=== PATIENT | female | born 1990 | race Caucasian/White ===

== ENCOUNTER 2018-02-19 07:00 | Inpatient (IN) | payer BC, SELFPAY ==
[2018-02-19 07:40] VITALS: BMI 33.1
[2018-02-19] MEDS: Lactated Ringers 1,000 ML 50 ML IV ×2 (07:50→15:21)
[2018-02-19 07:58] LABS: Hematocrit 36.1 % (37-47); Hemoglobin 11.9 g/dl (12.0-15.0); Mean Corpuscular Hgb 29.2 pg (27.0-32.0); Mean Corpuscular Volume 88.7 fL (81-99); Mean Platelet Vol. 11.8 fl (6.2-12.0); Platelet Count 226 K/mm3 (150-450); RBC Distribution Width CV 13.5 % (11.6-14.6); RBC Distribution Width SD 43.9 fl (35.1-43.9); Red Blood Count 4.07 M/mm3 (4.2-5.4); Scan Indicated on CBC? Y/N NO; White Blood Count 18.6 K/mm3 (4.4-11.0)
[2018-02-19] MEDS: Oxytocin 30 units/NS 500 ml 30 UNITS/500 ML IV.SOLN IV (08:17)
--- NOTE | 2018-02-19 08:53 | PCM.HP.OB ---
- Problem List (1) Post-dates Status: Acute (2) History of depression Status: Acute History Date of Admission: 02/19/18 Final LIZA: 02/11/18 Final LIZA Source: LMP Gestational age: 41 Weeks and 1 Days History of this : 27 year old at 41w1d by LMP, confirmed by first trimester U/S. Presented to L&D for postdates IOL today at 0700. uncomplicated. History of first trimester SAB. Allergies sesame seed Allergy (Verified 02/19/18 07:43) Food Allergy shellfish derived Allergy (Verified 02/19/18 07:43) Food Allergy soy Allergy (Verified 02/19/18 07:43) Food Allergy chickpea Allergy (Uncoded 02/19/18 07:43) Itching nuts Allergy (Uncoded 02/19/18 07:43) Anaphylaxis pineapple Allergy (Uncoded 02/19/18 07:43) Food Allergy soy Allergy (Uncoded 02/19/18 07:43) Food Allergy Smoking Status: Never smoker Alcohol: None Number of Fetus(es): 1 Review of Systems Constitutional: Denies: Chills, Fever, Weight Change Cardiovascular: Denies: Chest Pain, Palpitations Respiratory: Denies: Cough, Shortness of breath at rest, Sputum production Gastrointestinal: Denies: Abdominal Pain, Nausea, Vomiting Genitourinary: Denies: Dysuria Psychiatric: Denies: Anxiety, Depression, Homicidal Ideations, Suicidal Ideations Physical Exam Vitals: RPR negative HBsAG negative HIV negative O positive, antibody screen negative GBS positive Rubella immune FHR 150, moderate variability, accels, no decels, Category 1 [place]: None Davis bulb placed without difficulty, patient tolerated well. General: Alert, Oriented x3, No apparent distress Cardiovascular: Regular rate, Regular Rhythm, No murmurs Lungs: Clear to auscultation, No rhonchi, No wheeze Abdomen: Bowel Sounds Present, Gravid Extremities:: No edema Estimated gestational size: Appropriate for gestational size Presentation: Cephalic Cervix Dilation (cm): 3 Station: -2 Effacement (%): 60 Assessment/Plan Active and Suspected Problems (Acute) Post-dates (Acute) History of depression (Acute) A: 27 year old at 41w1d postdates for Induction of labor Category 1 FHT GBS positive P: 1) Admit for induction of labor. Davis bulb for cervical ripening. 2) IV placement with maintenance fluids 3) Routine labs ordered 4) GBS positive, start GBS prophylaxis 5) Start low dose pitocin. 6) Planning epidural for pain management. 7) as collaborative physician at this time and notified of patient update and in labor. Natasha Turner CNM
--- NOTE | 2018-02-19 11:45 | PCM.PN.OB ---
Patient Problems: Active and Suspected Problems (Acute) Post-dates (Acute) History of depression (Acute) Subjective: Doing well per patient and nursing staff. Family at bedside. Comfortable in bed. Positional changes and peanut ball. Davis fell out about an hour after placement. Objective: FHR 150, moderate variability, accels, Category 1 Cervix 4cm/70%/-1 IBOW TOCO: every 2-3 minutes, mild to palpation Pitocin at 6 mu's - Physical Exam Weight: 224 lb 6.889 oz Body Mass Index (BMI) 33.1 Laboratory Tests Past 24 Hrs 02/19/18 02/19/18 07:50 07:50 WBC 18.6 H RBC 4.07 L Hgb 11.9 L Hct 36.1 L MCV 88.7 MCH 29.2 MCHC 33.0 RDW 13.5 RDW Differential 43.9 Plt Count 226 MPV 11.8 Blood Type O POSITIVE Antibody Screen NEGATIVE Medical Necessity - Tobacco Use Smoking Status: Never smoker Assessment/Plan Active and Suspected Problems (Acute) Post-dates (Acute) History of depression (Acute) A: IOL, Active labor, progressing Category 1 FHT GBS positive P: 1) continue with pitocin IOL 2) Epidural for pain management when requested 3) GBS prophylaxis 4) Anticipate .
[2018-02-19] MEDS: Ondansetron 4 MG/2 ML Vial IV (15:40)
[2018-02-19] MEDS: Oxytocin 30 units/NS 500 ml 30 UNITS/500 ML IV.SOLN 334 UNITS IV (16:40)
[2018-02-19] MEDS: Oxytocin 30 units/NS 500 ml 30 UNITS/500 ML IV.SOLN 167 UNITS IV (17:10)
--- NOTE | 2018-02-19 17:20 | PCM.OB.VAG ---
- Problem List (1) Post-dates Status: Acute (2) History of depression Status: Acute (3) Vaginal delivery Status: Acute (4) Second degree perineal laceration, delivered, current hospitalization Status: Acute Vaginal Delivery Maternal Presentation: Medically Indicated Induction Method of Induction: Pitocin, Davis Bulb Amniotic Membrane Rupture Type: Artificial Amniotic Fluid Description: Clear Final LIZA: 02/11/18 Gestational age: 41 Weeks and 1 Days Date of Procedure: 02/19/18 Pre-Operative Diagnosis: Induction of labor, postdates Post-Operative Diagnosis: Vaginal delivery Surgery/ Procedure Performed: Spontaneous Vaginal Delivery Type of Anesthesia: Epidural, Local with 1% lidocaine Description of Procedure: Progressed to complete with urge to push. AROM for clear fluid. Pushed well with contractions, late decelerations in between pushing. heart rate decelerations down to 70's, patient with good pushing effort and progress. of viable male infant over 2nd degree perineal laceration. Apgars 8,9. delivered and placed on maternal abdomen, spontaneous cry, mouth and nares suctioned for secretions, terminal meconium. CAN x1, delivered through. Delayed cord clamping. Cord doubly clamped and cut. Placenta delivered intact via mihsel, 3 vessel cord. Perineum inspected and revealed 2nd degree perineal laceration. Repaired under epidural analgesia and 1% lidocaine with 3.0 vicryl, well approximated. Fundus firm, hemostasis achieved, EBL 300ml. Planning to breastfeed. Mother and baby stable, family bonding well. notified of delivery. Presentation: Vertex, MICH Placental Delivery Description: Spontaneous Placenta Disposition: [facility] Cord Vessel Description: 3 Vessels Cord Entanglement: Around neck x 1, loose A gender: Male Episiotomy Description: None Laceration: Perineal Extension/lac, 2nd degree Medications given after delivery: IV Pitocin
--- NOTE | 2018-02-19 17:28 | OP.PCM_ITS ---
- Problem List (1) Post-dates Status: Acute (2) History of depression Status: Acute (3) Vaginal delivery Status: Acute (4) Second degree perineal laceration, delivered, current hospitalization Status: Acute Vaginal Delivery Maternal Presentation: Medically Indicated Induction Method of Induction: Pitocin, Davis Bulb Amniotic Membrane Rupture Type: Artificial Amniotic Fluid Description: Clear Final LZIA: 02/11/18 Gestational age: 41 Weeks and 1 Days Date of Procedure: 02/19/18 Pre-Operative Diagnosis: Induction of labor, postdates Post-Operative Diagnosis: Vaginal delivery Surgery/ Procedure Performed: Spontaneous Vaginal Delivery Type of Anesthesia: Epidural, Local with 1% lidocaine Description of Procedure: Progressed to complete with urge to push. AROM for clear fluid. Pushed well with contractions, late decelerations in between pushing. heart rate decelerations down to 70's, patient with good pushing effort and progress. of viable male infant over 2nd degree perineal laceration. Apgars 8,9. delivered and placed on maternal abdomen, spontaneous cry, mouth and nares suctioned for secretions, terminal meconium. CAN x1, delivered through. Delayed cord clamping. Cord doubly clamped and cut. Placenta delivered intact via mishel , 3 vessel cord. Perineum inspected and revealed 2nd degree perineal laceration. Repaired under epidural analgesia and 1% lidocaine with 3.0 vicryl, well approximated. Fundus firm, hemostasis achieved, EBL 300ml. Planning to breastfeed. Mother and baby stable, family bonding well. notified of delivery. Presentation: Vertex, MICH Placental Delivery Description: Spontaneous Placenta Disposition: [facility] Cord Vessel Description: 3 Vessels Cord Entanglement: Around neck x 1, loose A gender: Male Episiotomy Description: None Laceration: Perineal Extension/lac, 2nd degree Medications given after delivery: IV Pitocin
--- NOTE | 2018-02-19 17:29 | DCINST_ITS ---
Discharge Diet: No Restrictions Discharge Activity: Return to Normal Activity, May not drive while taking narcotic pain medications., May Shower May resume sexual activity in: 4-6 weeks Weight Bearing Status: Weight bearing as tolerated Call your doctor if your incision/area has: Continuous Slow Oozing, Sudden Increased Bleeding, Increased Pain/ Swelling, Increased Redness, Foul Smelling Discharge Call your doctor if you observe: Fever of 101 or Higher, Coldness, Increased Pain, Numbness or Tingling, Change in Color, Inability to urinate, Inability to have a bowel movement, Using more than one pad per hour, Shortness of breath, Dizziness, Fainting spells, Swelling in the ankles, Chest pain, Prolonged hiccoughing, Increased palpitations (irregular heartbeat) Additional Instructions: If you experience any of the following, contact your healthcare provider. * Bleeding that soaks a pad every hour for 2 hours * Fever 100.4 or higher * Unrelieved incision or abdominal pain * Swelling, redness, discharge or bleeding from your incision or episiotomy site * Your incision begins to separate * Problems urinating (including inability to urinate or burning while urinating) . * Visual changes * Severe headache * Flu-like symptoms * Pain or redness in one of both of your breasts * Pain, warmth, tenderness or swelling in your legs, especially the calf area * Frequent nausea and vomiting * Symptoms of depression or anxiety If you experience any of the following, call 911 or go to the nearest Emergency Room. * Chest pain * Problems breathing * Seizure activity * Partial or complete paralysis of a body part, slurred speech, weakness or drooping of the face, or a sudden inability to walk or hold your balance Allergies/Adverse Reactions: Allergies sesame seed Allergy (Verified 02/19/18 07:43) Food Allergy shellfish derived Allergy (Verified 02/19/18 07:43) Food Allergy soy Allergy (Verified 02/19/18 07:43) Food Allergy chickpea Allergy (Uncoded 02/19/18 07:43) Itching nuts Allergy (Uncoded 02/19/18 07:43) Anaphylaxis pineapple Allergy (Uncoded 02/19/18 07:43) Food Allergy soy Allergy (Uncoded 02/19/18 07:43) Food Allergy Medications to take at Discharge Pnv No.122/Iron/Folic Acid [ Multi Tablet] 1 each PO DAILY 02/19/18 Please Follow Up With: Natasha Turner CNM When: Call to make an appointment with your doctor in 6 weeks. If you had elevated Blood Pressure or 4th degree laceration you will need to be seen in 2 weeks. Primary Care Physician: Care Physician,No Primary [Primary Care Provider] -
[2018-02-19] MEDS: 0.9% Saline Lock 10 ML Syringe IV (18:10)
[2018-02-19 19:29] VITALS: BP 123/67; PULSE 87; RESP 16; TEMP 37.3; O2SAT 98
[2018-02-19] MEDS: Naproxen 250 MG Tablet PO (23:12)
[2018-02-19 23:17] VITALS: BP 121/64; PULSE 77; RESP 16; TEMP 36.8
[2018-02-20 03:18] VITALS: BP 119/70; PULSE 78; RESP 16; TEMP 36.7
[2018-02-20] MEDS: Naproxen 250 MG Tablet PO ×2 (07:36→19:20)
[2018-02-20 07:53] VITALS: BP 124/78; PULSE 95; RESP 16; TEMP 36.6
[2018-02-20 11:45] VITALS: BP 123/70; PULSE 81; RESP 16; TEMP 36.9
--- NOTE | 2018-02-20 12:23 | PCM.PN.OB ---
Patient Problems: Active and Suspected Problems (Acute) Post-dates (Acute) History of depression (Acute) Vaginal delivery (Acute) Second degree perineal laceration during delivery (Acute) Second degree perineal laceration, delivered, current hospitalization (Acute) Subjective: Doing well per patient and nursing staff. Ambulating and taking PO without difficulty. Doing well with and no complaints. Voiding and passing flatus. Pain controlled with Naproxen. Would like discharge home today. - Physical Exam General: Alert, Oriented x3, Cooperative Lungs: Clear to auscultation, Normal air movement, No rhonchi, No wheeze Cardiovascular: Regular rate, Regular Rhythm, No murmurs Abdomen: Bowel Sounds Present, Soft, - - Fundus firm 2 below U Extremities: No edema Psych/Mental Status: Normal Affect, Appropriate Vital Signs Temp Pulse Resp BP Pulse Ox 98.5 F 81 16 123/70 H 98 02/20/18 11:45 02/20/18 11:45 02/20/18 11:45 02/20/18 11:45 02/19/18 19:29 Oxygen Delivery Method Room Air Weight: 224 lb 6.889 oz Body Mass Index (BMI) 33.1 Intake and Output for Last 24 Hours 02/18/18 02/19/18 02/20/18 23:59 23:59 23:59 Output Total 800 / 800 600 / 600 Balance -800 / -800 -600 / -600 Medical Necessity - Tobacco Use Smoking Status: Never smoker Assessment/Plan Active and Suspected Problems (Acute) Post-dates (Acute) History of depression (Acute) Vaginal delivery (Acute) Second degree perineal laceration during delivery (Acute) Second degree perineal laceration, delivered, current hospitalization (Acute) A: PPD#1 of viable male infant Second degree perineal laceration P: 1) Routine and instructions. 2) Planning D/C home today, discharge instructions given. 3) Wants to use Naproxen OTC, declines script. 4) Follow up in 6 weeks for visit.
[2018-02-20] MEDS: Acetaminophen 500 MG Tablet 1000 MG PO (14:52)
[2018-02-20 15:55] VITALS: BP 129/76; PULSE 96; RESP 16; TEMP 36.5
[2018-02-20 19:23] VITALS: BP 121/83; PULSE 80; RESP 16; TEMP 36.5
== END 2018-02-20 21:25 | disposition home or self-care (01) | DRG 774 ==
PROVIDERS: Admitting Provider Obstetrics & Gynecology; Visit Provider Obstetrics & Gynecology
DX: O48.0 Post-term pregnancy (principal); O98.82 Other maternal infectious and parasitic diseases complicating childbirth; Z3A.41 41 weeks gestation of pregnancy; B95.1 Streptococcus, group B, as the cause of diseases classified elsewhere; O76 Abnormality in fetal heart rate and rhythm complicating labor and delivery; O77.0 Labor and delivery complicated by meconium in amniotic fluid; O69.81X0 Labor and delivery complicated by cord around neck, without compression, not applicable or unspecified; Z37.0 Single live birth; O70.9 Perineal laceration during delivery, unspecified
CPT/HCPCS: 59025; 59050; 85027; 86850; 86900; 99218; J7050; J7120; A4216; G0378; J2405

== ENCOUNTER 2019-03-07 15:45 | Outpatient (CLI) | payer OTHER, SELFPAY ==
[2019-03-07 16:15] VITALS: BMI 30.8
--- NOTE | 2019-03-08 08:07 | OB.TRI.NOTE ---
History of Present Illness Date of Service: 03/07/19 Was patient seen by the physician?: Yes Reason For Visit: R/O LABOR Date of Service: 03/07/19 Final LIZA: 03/20/19 Final LIZA Source: LMP Gestational age: 38 Weeks and 2 Days Allergies sesame seed Allergy (Verified 03/07/19 17:00) Food Allergy shellfish derived Allergy (Verified 03/07/19 17:00) Food Allergy soy Allergy (Verified 03/07/19 17:00) Food Allergy nuts Allergy (Severe, Uncoded 03/07/19 17:00) Anaphylaxis chickpea Allergy (Mild, Uncoded 03/07/19 17:00) Itching pineapple Allergy (Uncoded 02/19/18 07:43) Food Allergy soy Allergy (Uncoded 02/19/18 07:43) Food Allergy NST - FHR Rate Baby A Baseline: 120 Variability:: Moderate Accelerations:: 15 x 15 Decelerations:: None NST Reactive:: Yes FHR Category:: Category I Uterine Activity:: ctxs irreg Impression/Plan 38 1/7 weeks multigravida\ false labor NST reactive, cervix unchanged, d/c home
== END 2019-03-07 16:30 | disposition home or self-care (01) ==
LOC: WPOUT 15:57 → WP 15:58
PROVIDERS: Referring Provider Obstetrics & Gynecology; Visit Provider Obstetrics & Gynecology
DX: O47.1 False labor at or after 37 completed weeks of gestation (principal); Z3A.38 38 weeks gestation of pregnancy
CPT/HCPCS: 59025; 59050; 99218; G0378

== ENCOUNTER 2019-03-19 21:38 | Outpatient (CLI) | payer OTHER, SELFPAY ==
[2019-03-19 22:16] VITALS: BMI 31.1
[2019-03-19 22:30] LABS: ROM Internal Control Test YES-OK TO RESULT pt. (Internal QC); ROM Patient Test Negative (Negative)
--- NOTE | 2019-03-20 16:06 | OB.TRI.NOTE ---
- Problem List (1) 39 weeks gestation of Status: Acute (2) Vaginal discharge Status: Acute History of Present Illness Date of Service: 03/19/19 Was patient seen by the physician?: No Reason For Visit: R/O LABOR Final LIZA Source: LMP History of Present Illness: Pt presents with possible leaking of fluid. No large gushes of fluid. +Irregular ctx's. No VB. +FM Allergies sesame seed Allergy (Verified 03/19/19 22:18) Food Allergy shellfish derived Allergy (Verified 03/19/19 22:18) Food Allergy soy Allergy (Verified 03/19/19 22:18) Food Allergy nuts Allergy (Severe, Uncoded 03/07/19 17:00) Anaphylaxis chickpea Allergy (Mild, Uncoded 03/07/19 17:00) Itching pineapple Allergy (Uncoded 02/19/18 07:43) Food Allergy soy Allergy (Uncoded 02/19/18 07:43) Food Allergy Laboratory Studies: Laboratory Tests 03/19/19 Range/Units 21:51 Vag Amniotic Fld Detect Negative (Negative) NST - FHR Rate Baby A NST Reactive:: Yes FHR Category:: Category I Impression/Plan ROM plus negative Not ruptured D/c home with follow up in the office
== END 2019-03-20 01:20 | disposition home or self-care (01) ==
LOC: WPOUT 21:53 → WP 21:56
PROVIDERS: Referring Provider Obstetrics & Gynecology; Visit Provider Obstetrics & Gynecology
DX: Z34.93 Encounter for supervision of normal pregnancy, unspecified, third trimester (principal)
CPT/HCPCS: 59025; 59050; 84112; 99218; G0378

== ENCOUNTER 2019-03-27 06:59 | Inpatient (IN) | payer OTHER, SELFPAY ==
[2019-03-27] MEDS: Lactated Ringers 1,000 ML 50 ML IV (07:25)
[2019-03-27 07:45] VITALS: BMI 31.0
[2019-03-27 07:48] LABS: Absolute Neutrophil Count 9.9 X10^3/uL (2.0-7.7); Basophil# 0.03 X10^3/uL; Basophil% 0.2 % (0-1); Eosinophil# 0.19 X10^3/uL; Eosinophils% 1.3 % (0-5); Hematocrit 36.8 % (37-47); Hemoglobin 12.3 g/dl (12.0-15.0); Lymphocyte % 22.7 % (19-41); Mean Corp Hgb Conc 33.4 g/gl (32-36); Mean Corpuscular Hgb 29.7 pg (27.0-32.0); Mean Corpuscular Volume 88.9 fL (81-99); Mean Platelet Vol. 11.6 fl (6.2-12.0); Monocyte% 6.9 % (0-10); Neutrophil % 68.3 % (47-70); POSITIVE COUNT NO; POSITIVE DIFFERENTIAL NO; POSITIVE MORPHOLOGY NO; Platelet Count 228 K/mm3 (150-450); RBC Distribution Width CV 13.4 % (11.6-14.6); RBC Distribution Width SD 43.4 fl (35.1-43.9); Red Blood Count 4.14 M/mm3 (4.2-5.4); White Blood Count 14.5 K/mm3 (4.4-11.0)
[2019-03-27] MEDS: Oxytocin 30 units/NS 500 ml 30 UNITS/500 ML IV.SOLN IV (08:05)
--- NOTE | 2019-03-27 08:57 | HP.PCM_ITS ---
- Problem List (1) Post-dates Status: Acute History Date of Admission: 02/19/18 Final LIZA: 03/20/19 Final LIZA Source: LMP Gestational age: 41 Weeks and 0 Days History of this : This is a 28 year-old, G [3], P [1011], at 41 weeks gestational age. Presents for post dates IOL. Allergies sesame seed Allergy (Verified 03/27/19 07:50) Food Allergy shellfish derived Allergy (Verified 03/27/19 07:50) Food Allergy soy Allergy (Verified 03/27/19 07:50) Food Allergy nuts Allergy (Severe, Uncoded 03/07/19 17:00) Anaphylaxis chickpea Allergy (Mild, Uncoded 03/07/19 17:00) Itching pineapple Allergy (Uncoded 02/19/18 07:43) Food Allergy soy Allergy (Uncoded 02/19/18 07:43) Food Allergy Home Medications: Home Medications No122/Iron/Folic Acid [ Multi Tablet] 1 each PO DAILY 02/19/18 Smoking Status: Never smoker Alcohol: None Heart Tracin, moderate variability, accels, Category 1 TOCO: Irregular, mild. Pitocin at 4mu's History Past Pregnancies: Past Pregnancies Delivery Date Name GA/Weeks Outcome Route Weight Infant Gender Labor Length Anesthesia Delivery Location Provider FOB Labs: HIV negative HBsAG negative RPR negative GBS negative 1hr GCT normal Rubella Immune GC/CT negative O positive, antibody screen negative. Expected Infant Delivery Method: Spontaneous Vaginal Review of Systems Constitutional: Denies: Chills, Fever, Weight Change Eyes: Denies: Blurred vision HEENT: Denies: Head Aches, Sinus Congestion, Sinus Drainage Cardiovascular: Denies: Chest Pain, Palpitations Respiratory: Denies: Cough, Shortness of breath at rest, Sputum production Gastrointestinal: Denies: Abdominal Pain, Nausea, Vomiting Genitourinary: Denies: Dysuria Neurological: Denies: Numbness, Tingling, Focal weakness Psychiatric: Denies: Anxiety, Depression, Homicidal Ideations, Suicidal Ideations Physical Exam General: Alert, Oriented x3, No apparent distress HEENT: Atraumatic, Normocephalic Cardiovascular: Regular rate, Regular Rhythm, No murmurs Lungs: Clear to auscultation, Normal air movement, No rhonchi, No wheeze Abdomen: Bowel Sounds Present, Soft, Non Tender, Gravid Extremities:: No edema Neurological: Deep Tendon Reflexes 2+/4 and Symmetrical. Negative for: Clonus [employer]INCIPAL PRODUCT MANAGER: Normal external genitalia Estimated gestational size: Appropriate for gestational size Presentation: Cephalic Cervix Dilation (cm): 4.5 - vertex IBOW Station: -1 Effacement (%): 70 Assessment/Plan All Active Problems (Acute) Post-dates (Acute) History of depression (Acute) Vaginal delivery (Acute) Second degree perineal laceration during delivery (Acute) Second degree perineal laceration, delivered, current hospitalization (Acute) 39 weeks gestation of (Acute) Vaginal discharge (Acute) This is a 28 year-old, G [3], P [1011], at 41 weeks gestational age. A:Post dates Induction of Labor Category 1 FHT P: 1) Admission to L&D. Routine labs 2) Pitocin for IOL per protocol 3) Continuous EFM 4) Positional changes and movement. 5) Planning Nitrous or IV pain medication, epidural if needed. 6) collaborative physician.
[2019-03-27] MEDS: Nalbuphine 10 MG/ML Ampul IV (10:53)
[2019-03-27] MEDS: Oxytocin 30 units/NS 500 ml 30 UNITS/500 ML IV.SOLN 334 UNITS IV (12:43)
--- NOTE | 2019-03-27 12:57 | PCM.OPRPT ---
Problem List (1) Post-dates Status: Acute (2) Vaginal delivery Status: Acute (3) First degree perineal laceration Status: Acute Vaginal Delivery Maternal Presentation: Medically Indicated Induction - Post dates at 41 weeks Method of Induction: Pitocin Amniotic Membrane Rupture Type: Spontaneous - At time of delivery Amniotic Fluid Description: Lightly stained meconium Final LIZA: 03/20/19 Gestational age: 41 Weeks and 0 Days Date of Procedure: 03/27/19 Pre-Operative Diagnosis: Post dates induction of labor Post-Operative Diagnosis: Surgery/ Procedure Performed: Spontaneous Vaginal Delivery Type of Anesthesia: None Description of Procedure: Progressed to complete with urge to push. SROM for light meconium fluid as pushing. of viable male infant over 1st degree laceration unmedicated. APGARS 9,9. head delivered with body forthcoming. placed on maternal abdomen, spontaneous cry. Mouth and nares suctioned for secretions. APGARS 9,9. Pitocin started for active 3rd stage management. Cord clamped and cut after pulsations ceased by FOB. Placenta delivered with maternal effort, intact, 3 vessel cord via mishel. Fundal massage, fundus firm. Perineum inspected and revealed small first degree laceration. Repair with 3.0 vicryl for approximation. No anesthetic used due to minimal suture repair with patient consent, tolerated well. EBL 250ml, hemostasis achieved. Mom and baby stable, family bonding well. Planning to breastfeed. notified of delivery. Presentation: Vertex Placental Delivery Description: Spontaneous Placenta Disposition: [facility] Cord Vessel Description: 3 Vessels Cord Entanglement: None Estimated Blood Loss: 250ml Infant A gender: Male (1 minute): 9 (5 minute): 9 Episiotomy Description: None Laceration: 1st degree Medications given after delivery: IV Pitocin
[2019-03-27] MEDS: Oxytocin 30 units/NS 500 ml 30 UNITS/500 ML IV.SOLN 167 UNITS IV (13:13)
[2019-03-27] MEDS: 0.9% Saline Lock 10 ML Syringe IV (14:14)
[2019-03-27 16:10] VITALS: BP 114/72; PULSE 85; RESP 18; TEMP 36.7
[2019-03-27 20:45] VITALS: BP 111/71; PULSE 80; RESP 16; TEMP 37.1; O2SAT 98
[2019-03-27 23:55] VITALS: BP 112/57; PULSE 75; RESP 16; TEMP 36.9
[2019-03-28 05:08] VITALS: BP 120/75; PULSE 78; RESP 16; TEMP 36.8
[2019-03-28 07:47] VITALS: BP 123/77; PULSE 84; RESP 16; TEMP 37.1; O2SAT 99
--- NOTE | 2019-03-28 08:10 | DCINST_ITS ---
Discharge Diet: No Restrictions Discharge Activity: Return to Normal Activity, May not drive while taking narcotic pain medications., May Shower May resume sexual activity in: 4-6 weeks Additional Activity Instructions:: Nothing in the vagina for 4-6 weeks. You may return to work/school in 6 weeks. Call your doctor if your incision/area has: Continuous Slow Oozing, Sudden Increased Bleeding, Increased Pain/ Swelling, Increased Redness, Foul Smelling Discharge Call your doctor if you observe: Inability to urinate, Inability to have a bowel movement, Using more than one pad per hour, Uncontrolled pain Additional Instructions: If you experience any of the following, contact your healthcare provider. * Bleeding that soaks a pad every hour for 2 hours * Fever 100.4 or higher * Unrelieved incision or abdominal pain * Swelling, redness, discharge or bleeding from your incision or episiotomy site * Your incision begins to separate * Problems urinating (including inability to urinate or burning while urinating). * Visual changes * Severe headache * Flu-like symptoms * Pain or redness in one of both of your breasts * Pain, warmth, tenderness or swelling in your legs, especially the calf area * Frequent nausea and vomiting * Symptoms of depression or anxiety If you experience any of the following, call 911 or go to the nearest Emergency Room. * Chest pain * Problems breathing * Seizure activity * Partial or complete paralysis of a body part, slurred speech, weakness or drooping of the face, or a sudden inability to walk or hold your balance Allergies/Adverse Reactions: Allergies sesame seed Allergy (Verified 03/27/19 07:50) Food Allergy shellfish derived Allergy (Verified 03/27/19 07:50) Food Allergy soy Allergy (Verified 03/27/19 07:50) Food Allergy nuts Allergy (Severe, Uncoded 03/07/19 17:00) Anaphylaxis chickpea Allergy (Mild, Uncoded 03/07/19 17:00) Itching pineapple Allergy (Uncoded 02/19/18 07:43) Food Allergy soy Allergy (Uncoded 02/19/18 07:43) Food Allergy Medications to take at Discharge No122/Iron/Folic Acid [ Multi Tablet] 1 each PO DAILY 02/19/18 Please Follow Up With: Natasha Turner CNM When: Call to make an appointment with your provider in 2 weeks and 6 weeks. Primary Care Physician: Care Physician,No Primary [Primary Care Provider] - Test Results: Test results from this visit will be discussed in further detail at your follow- up appointment, if applicable. Proposed Discharge Date: 03/28/19
--- NOTE | 2019-03-28 08:18 | PCM.PN.OB ---
Patient Problems: Active and Suspected Problems Vaginal delivery (Acute) First degree perineal laceration (Acute) Subjective: Patient recently got out of shower, reports no issues this morning. Reports that baby slept well and is feeding at the breast without any difficulty. Patient reports no problems otherwise. Denies TSAI, denies scotoma, denies issues with urination and ambulation. Desires discharge to home today. Objective: VSS, Afebrile Nipples without cracks or blisters, no ecchymoses noted Abdomen NT x 4quadrants, FF midline @ 2FB below umbilicus Scant rubra lochia, perineum well-approximated negative calf tenderness to palpation, +2/4 reflexes in LE no edema noted - Physical Exam General: Alert, Oriented x3, Cooperative HEENT: Atraumatic, Normocephalic Lungs: Normal air movement Cardiovascular: Regular rate Abdomen: Soft, Non Tender Extremities: No edema, Capillary Refill Less than 3 Seconds Skin: No rashes, No breakdown Musculoskeletal: No Tenderness to Palpation of Joints or Extremities Neurological: Cranial nerves II-XII grossly intact Psych/Mental Status: Normal Affect, Appropriate Vital Signs Temp Pulse Resp BP Pulse Ox 98.7 F 84 16 123/77 H 99 03/28/19 07:47 03/28/19 07:47 03/28/19 07:47 03/28/19 07:47 03/28/19 07:47 Oxygen Delivery Method Room Air Weight: 216 lb 5 oz Body Mass Index (BMI) 31.0 Intake and Output for Last 24 Hours 03/26/19 03/27/19 03/28/19 23:59 23:59 23:59 Intake Total 1423 / 1423 Output Total 1650 / 1650 Balance -227 / -227 Laboratory Tests Past 24 Hrs 03/27/19 07:25 Blood Type O POSITIVE Antibody Screen NEGATIVE Medical Necessity - Tobacco Use Smoking Status: Never smoker Assessment/Plan All Active Problems (Acute) Post-dates (Acute) History of depression (Acute) Vaginal delivery (Acute) Second degree perineal laceration during delivery (Acute) Second degree perineal laceration, delivered, current hospitalization (Acute) 39 weeks gestation of (Acute) Vaginal discharge (Acute) Vaginal delivery (Acute) First degree perineal laceration (Acute) 28 y/o s/p , PPD #1, Normal Course P: 1) Discharge to home pending discharge 2) Anticipatory health teaching done 3) RTC at 2 weeks and 6 weeks PP Rose CUTLER
[2019-03-28 11:45] VITALS: BP 114/78; PULSE 68; RESP 16; TEMP 36.9; O2SAT 100
--- NOTE | 2019-03-28 14:38 | CASEMGMT ---
Social Work Assessment Labor and Delivery Unit Date of Referral: 03/28/2019 Time of Referral: 1008 Referred By: Natasha Turner CNM Date of Intervention: 03/28/2019 Time of Intervention: 1410 Reason for Referral: maternal history of depression History obtained from: medical records, mother of baby (MOB) Anastasiya Najera, and father of baby (FOB) Dimitri Najera. Household composition: MOB, FOB and their older son. Home situation is reported to be safe and adequate. Patient's parent/guardian status: MOB who sis 26 and FOB who is 28 are . No reports or indication of safety concerns in this relationship. MOB and FOB now have 2 young children: Lv (born 02[birth year]19[birth year]2018) and baby boy Napoleon (born 03.27.2017). Medical History: JOSIAH is G3, P1 to 2 with history of one miscarriage. MOB with history of polycystic ovarian syndrome. care this started at 8 weeks and adequate throughout. Baby Napoleon was born weighing 8 pounds 16 ounces. Apgars 9 and 9 at 1 and 5 minutes of life. Educational Status: JOSIAH has 14 years of schooling in total. No issues with reading, writing, or learning comprehension. Financial Status: MOB is currently a stay at home mom. FOB works full-time for [employer]. Supplies: MOB reports to have adequate baby supplies including safe sleep space and car seat. MOB plans to breast feed but is open to formula feeding if breast feeding does not work out. Childcare/Caregiver(s): MOB and then supplemental help from FOB. Transportation: No issues. Programs/Agencies Involved: No agency involvement. Denies need for any resources such as [facility], nor any interest in services such as a nurse visit. Behavioral Health Issues: Mental Health History: JOSIAH reports history of depression as a teen and has been off of medication since about 2012. Chart indicates history of suicidal thoughts at the age of 19 and an overdose at the age of 18, no thoughts/plans/intent since that time. MOB denies experiencing any depression or anxiety after of Lv. Substance Use History: No reports or indication of any substance use history of MOB. Drug Screens: Maternal drug screen negative on 08.10.2018. Family/Social Stressors/changes: Closely spaced pregnancies, with unplanned second so soon, though MOB and FOB report to be happy and accepting of having another child. 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 MOB now plans to stay at home and devote time to own family. Support Systems: MOB reports FOB is a good sport and then MOB?s parent live 5-10 minutes away, are retired and willing to help MOB out with whatever is needed. Depression/Shaken Baby/Safe Sleeping : Educated MOB and FOB to depression and anxiety, risk present, and importance or seeking out help and support should symptoms arise. MOB indicates would let the doctor know and go from there on what type of intervention may be needed. MOB voiced recognition that may be at higher risk due to personal history of depression. ASSESSMENT: MOB and FOB both engaging, pleasant and cooperative with social work visit. MOB held good eye contact, spontaneous conversation, mood and affect appropriate and congruent. MOB voices insight into being at higher risk for depression, voices willingness to talk to her doctor if needed, and repots to have adequate support at home. MOB reports to feel a connection to this baby as well as to first child. Discussed being kind to self, changing expectations of self to be realistic in the period and accepting help from others when offered. MOB denies any needs or concerns with home going and accepting of resources this contract technical writer provided. PLAN: MOB and baby to home with help from FOB and MOB?s parents. MOB has been given depression packet, information on [facility], [place] nurse visit program in [facility], information on shaken baby prevention and safe sleeping. No other services requested or indicated. -NICHOLAS Del Real, FINANCIAL INTERN
[2019-03-28 15:49] VITALS: BP 124/76; PULSE 77; RESP 16; TEMP 37.1; O2SAT 99
== END 2019-03-28 16:00 | disposition home or self-care (01) | DRG 807 ==
PROVIDERS: Admitting Provider Advanced Practice Midwife; Referring Provider Advanced Practice Midwife; Visit Provider Advanced Practice Midwife
DX: O48.0 Post-term pregnancy (principal); Z37.0 Single live birth; Z3A.41 41 weeks gestation of pregnancy; O77.0 Labor and delivery complicated by meconium in amniotic fluid; O70.0 First degree perineal laceration during delivery
CPT/HCPCS: 59025; 59050; 85025; 86850; 86900; 99218; J7120; A4216; G0378

== ENCOUNTER 2021-08-17 07:00 | Inpatient (IN) | payer BC, SELFPAY ==
[2021-08-17] VITALS (39 sets, daily range): BP systolic 108–134; BP diastolic 60–92; PULSE 70–117; RESP 16; TEMP 36.3–36.7; O2SAT 89–100; BMI 34.4
[2021-08-17] MEDS: Lactated Ringers 1,000 ML 50 ML IV (07:30)
[2021-08-17 07:52] LABS: Absolute Lymphocyte Count 2.78 X10^3/uL (0.83-4.51); Absolute Neutrophil Count 11.3 X10^3/uL (2.0-7.7); Basophil# 0.06 X10^3/uL; Basophil% 0.4 % (0-1); Eosinophil# 0.26 X10^3/uL; Eosinophils% 1.7 % (0-5); Hematocrit 36.3 % (37-47); Hemoglobin 12.2 g/dL (12.0-15.0); Lymphocyte # 2.78 X10^3/ul (0.83-4.51); Lymphocyte % 18.1 % (19-41); Mean Corp Hgb Conc 33.6 g/dL (32-36); Mean Corpuscular Volume 89.4 fL (81-99); Mean Platelet Vol. 12.1 fl (6.2-12.0); Monocyte# 0.78 X10^3/uL; Monocyte% 5.1 % (0-10); NRBC Flagged by Analyzer 0 % (0-5); Neutrophil # 11.28 X10^3/uL (2.7-7.7); Neutrophil % 73.7 % (47-70); Platelet Count 197 K/mm3 (150-450); RBC Distribution Width CV 13.2 % (11.6-14.6); RBC Distribution Width SD 42.7 fl (35.1-43.9); Red Blood Count 4.06 M/mm3 (4.2-5.4); White Blood Count 15.3 K/mm3 (4.4-11.0)
--- NOTE | 2021-08-17 08:04 | HP.PCM.OB_ITS ---
HPI - General General Date of Admission: 08/17/21 HPI Narrative ALLAN RANGEL, is a 31 F who presents [facility] Medical History no medical history Home Medications [id number] acid 1 ea PO DAILY 02/19/18 [History Last Taken 03/26/19 19:00] Allergy/AdvReac Type Severity Reaction Status Date / Time sesame seed Allergy Food Verified 08/17/21 07:16 Allergy shellfish derived Allergy Food Verified 08/17/21 07:16 Allergy soy Allergy Food Verified 08/17/21 07:16 Allergy nuts Allergy Severe Anaphylaxis Uncoded 08/17/21 07:16 chickpea Allergy Mild Itching Uncoded 08/17/21 07:16 pineapple Allergy Food Uncoded 08/17/21 07:16 Allergy soy Allergy Food Uncoded 08/17/21 07:16 Allergy Surgical History no surgical history Social History (Updated 06/04/19 @ 15:37 by Sabrina Patel LIBRARY ACQUISITIONS TECHNICIAN, LIBRARY ACQUISITIONS TECHNICIAN-C) Smoking Status: Never smoker alcohol intake: current alcohol intake frequency: a few times a week History Elective abortions Hx Para 2 Spontaneous abortions Hx # Term Pregnancies Ectopic pregnancies Hx # Pregnancies Multiple births # of living children NST FHR Rate Baby A Baseline: 155 Variability:: Moderate Accelerations:: 15 x 15 Decelerations:: None FHR Category:: Category I Uterine Activity:: None Vital Signs Vital Signs Vital Signs: 08/17/21 07:54 Temperature 97.9 F Pulse Rate 117 H Blood Pressure 134/82 H BP Systolic 134 BP Diastolic 82 Weight Weight: 240 lb 6 oz Body Mass Index (BMI) 34.4 Labs Labs Labs: Blood Type O POSITIVE Antibody Screen NEGATIVE Hct 36.3 % (37-47) L Hgb 12.2 g/dL (12.0-15.0) Rhogam given: No
[2021-08-17] MEDS: Oxytocin 30 units/NS 500 ml 30 UNITS/500 ML IV.SOLN IV (08:06)
[2021-08-17] MEDS: Penicillin G 3,000,000 Units 50 ML 100 UNITS IV (12:00)
--- NOTE | 2021-08-17 12:24 | PN.OBGYN_ITS ---
Subjective Subjective Resting in bed comfortably. Objective Data Objective Data Vital Signs: Vital Signs Temp Pulse BP 98.1 F 88 134/92 H 08/17/21 11:17 08/17/21 11:17 08/17/21 11:17 Weight: 240 lb 6 oz Body Mass Index (BMI) 34.4 Intake & Output: Intake and Output for Last 24 Hours 08/15/21 08/16/21 08/17/21 23:59 23:59 23:59 Intake Total 131.03 / 131.03 Balance 131.03 / 131.03 Lab / Micro Data Result Diagrams: 08/17/21 07:37 Labs: Laboratory Results - last 24 hr 08/17/21 07:37: WBC 15.3 H, RBC 4.06 L, Hgb 12.2, Hct 36.3 L, MCV 89.4, MCH 30.0, MCHC 33.6, RDW Std Deviation 42.7, RDW Coeff of [place] 13.2, Plt Count 197, MPV 12.1 H, Immature Gran % (Auto) 1.000 H, Neut % (Auto) 73.7 H, Lymph % (Auto) 18.1 L, [place] % (Auto) 5.1, Eos % (Auto) 1.7, Baso % (Auto) 0.4, Absolute Neuts (auto) 11.3 H, Absolute Lymphs (auto) 2.78, Nucleated RBC % 0 08/17/21 07:37: Blood Type O POSITIVE, Antibody Screen NEGATIVE Micro: Microbiology 08/17/21 07:45 Nasal Secretion SARS-CoV-2 Antigen (Rapid) - Final NST FHR Rate Baby A Baseline: 155 Variability:: Moderate Accelerations:: 15 x 15 Decelerations:: None FHR Category:: Category I Uterine Activity:: Every 4-5 minutes Assessment & Plan (1) Elective induction of labor planned: (2) Post-dates : (3) Positive GBS test: PLAN: 1) Continue with active management 2) Planning unmedicated , coping well 3) GBS prophylaxis 4) notified of patient status
[2021-08-17] MEDS: Ondansetron 4 MG/2 ML Vial IV (14:10)
[2021-08-17] MEDS: Oxytocin 30 units/NS 500 ml 30 UNITS/500 ML IV.SOLN 334 UNITS IV (14:36)
--- NOTE | 2021-08-17 14:42 | EX.PCM.OBRPT ---
Assessment & Plan (1) Vaginal delivery: Vaginal Delivery Maternal Presentation Maternal Presentation: Elective Induction Type of Induction: Pitocin Operative Information Type of Anesthesia: None Estimated Blood Loss: 250 ml Time of Delivery: 14:33 Findings Description of Procedure: Progressed to complete with strong urge to push. of viable female over intact perineum. APGARS 8,9. head delivered with body forthcoming, placed on maternal abdomen. Mouth and nares suctioned for secretions. Pitocin started for active 3rd stage management. Placenta delivered intact via mishel, 3 vessel cord. Perineum inspected and revealed intact. Fundus firm, EBL 250ml. Vaginal sweep completed, sponge and instrument count correct. Mom and baby stable, family bonding well. notified of delivery. Presentation: Vertex and MICH Amniotic Membrane Rupture Type: Artificial Amniotic Fluid Description: Clear Placental Delivery Description: Expressed Placenta Disposition: [facility] Cord Vessel Description: 3 Vessels Cord Entanglement: None Infant A Gender: Female (1 minute): 8 (5 minute): 9 Delayed Cord Clamping: Yes Post Vaginal Delivery Medications Given After Delivery: IV Pitocin Laceration: None Complication Complications: None
[2021-08-18] VITALS: BP 117/68; PULSE 78; RESP 16; TEMP 36.7
[2021-08-18 04:00] VITALS: BP 128/71; PULSE 75; RESP 16; TEMP 36.7
[2021-08-18 07:30] VITALS: BP 115/72; PULSE 71; RESP 15; TEMP 36.2; O2SAT 96
[2021-08-18] MEDS: Prenatal Vits Tablet 1 TABLET PO (08:09)
--- NOTE | 2021-08-18 08:15 | PCM.PN.OB ---
Subjective Subjective Patient seen at bedside. Feeling good. without difficulty. Ambulating and voiding. Requesting dicharge home today. Objective Data Objective Data Vital Signs: Vital Signs Temp Pulse Resp BP Pulse Ox 97.1 F L 71 15 115/72 96 08/18/21 07:30 08/18/21 07:30 08/18/21 07:30 08/18/21 07:30 08/18/21 07:30 Oxygen Delivery Method Room Air Weight: 240 lb 6 oz Body Mass Index (BMI) 34.4 Intake & Output: Intake and Output for Last 24 Hours 08/16/21 08/17/21 08/18/21 23:59 23:59 23:59 Intake Total 1024.53 / 1024.53 Output Total 200 / 200 Balance 824.53 / 824.53 Lab / Micro Data Result Diagrams: 08/17/21 07:37 Labs: Laboratory Results - last 24 hr 08/17/21 07:37: Blood Type O POSITIVE, Antibody Screen NEGATIVE Micro: Microbiology 08/17/21 07:45 Nasal Secretion SARS-CoV-2 Antigen (Rapid) - Final ROS Eyes Eyes: Denies blurry vision, change in vision or spots in vision ENT HEENT: Denies dizziness or headache(s) Cardiovascular Cardiovascular: Denies abdominal pain, chest pain or dyspnea Respiratory/Chest Respiratory/Chest: Denies cough, dyspnea, shortness of breath at rest or shortness of breath with exertion Gastrointestinal Gastrointestinal: Denies abdominal pain, diarrhea or vomiting Genitourinary Genitourinary: Denies change in urinary stream, difficulty urinating or dysuria Musculoskeletal Musculoskeletal: Reports none Integumentary Integumentary: Denies rash Neurologic Neurologic: Denies dizziness, headache(s), memory loss or weakness Physical Exam Const alert and no apparent distress General Appearance: cooperative and comfortable Exam Limitations: no limitations HEENT normocephalic Eyes General Eye: normal appearance of both eyes Neck full ROM General: normal visual inspection Chest Chest: symmetrical chest wall rise Resp normal respiratory effort and normal air movement Effort and Inspection: symmetric chest movement Auscultation: clear to auscultation bilaterally Cardio regular rate and regular rhythm GI normal to inspection, nondistended, normoactive bowel sounds Back/Spine normal ROM Extremity full ROM and no calf tenderness General Extremity: normal exam except as noted Skin no rashes or lesions noted Neuro CN's II-XII intact bilaterally Psych mental status grossly normal Assessment & Plan (1) Vaginal delivery: PLAN: PPD 1 Routine care support Discharge home with follow up in office
--- NOTE | 2021-08-18 08:18 | PCM.DC ---
Discharge Instructions Diet Discharge Diet: No restrictions Activity May resume sexual activity in: 6-8 weeks Weight Bearing Status: Weight bearing as tolerated Dressing / Incision Call your doctor if you observe: Fever of 101 or Higher, Inability to urinate, Using more than 1 pad per hour, Shortness of breath, Chest pain, Calf discomfort and Uncontrolled pain Follow Up Care Please Follow Up With: Balbina Maldonado CNM When: 2 weeks virtual visit/ 6 weeks in office Test Results: Test results from this visit will be discussed in further detail at your follow-up appointment, if applicable. Discharge Plan Admission Admit Date/Time: 08/17/21 07:00 Primary Reason for Your Visit: Labor and delivery Attending Provider: Natasha Turner Primary Care Provider: Care Physician,Enedina Primary Discharge Orders/Prescriptions Prescriptions: No Action [id number] acid 1 EACH tablet 1 ea PO DAILY RF: 0 Vitamin C 100 mg Tablet 100 mg PO DAILY RF: 0 cholecalciferol (vitamin D3) [Vitamin D3] 50 mcg (2,000 unit) Capsule 50 mcg PO DAILY RF: 0 magnesium citrate 100 mg Tablet 200 mg PO BID RF: 0 Probiotic 3 billion cell Tablet,Chewable 1 tab PO DAILY RF: 0 aspirin 81 mg Capsule 81 mg PO DAILY RF: 0 CoQ10 SG 100 1 tab PO/SL DAILY RF: 0 Referrals / Follow Up: Care Physician,No Primary [Primary Care Provider] - Disposition Disposition (needs filled in before D/C Order can be placed): Home, Self Care
[2021-08-18 08:47] VITALS: PULSE 71; RESP 15; O2SAT 96
[2021-08-18 10:58] VITALS: BP 114/74; PULSE 73; RESP 17; TEMP 36.3; O2SAT 97
[2021-08-18] MEDS: Ibuprofen 600 MG Tablet PO (11:02)
--- NOTE | 2021-08-18 13:43 | NURSING ---
Nursing instruction reviewed students nurse charting and agree. This is used for educational and learning purposes.
[2021-08-18 14:00] VITALS: BP 119/79; PULSE 77; RESP 16; TEMP 36.2; O2SAT 97
== END 2021-08-18 16:00 | disposition home or self-care (01) | DRG 807 ==
PROVIDERS: Obstetrics & Gynecology; Admitting Provider Advanced Practice Midwife; Referring Provider Advanced Practice Midwife; Visit Provider Advanced Practice Midwife
DX: O98.82 Other maternal infectious and parasitic diseases complicating childbirth (principal); Z37.0 Single live birth; B95.1 Streptococcus, group B, as the cause of diseases classified elsewhere; Z3A.00 Weeks of gestation of pregnancy not specified
CPT/HCPCS: 59025; 59050; 85025; 86850; 86900; 86901; 87426; 99218; J7120; G0378; J2405

== ENCOUNTER 2024-02-06 07:28 | Inpatient (IN) | payer BC, SELFPAY ==
[2024-02-06] VITALS (17 sets, daily range): BP systolic 89–139; BP diastolic 58–82; PULSE 69–91; RESP 16–17; TEMP 36.5–36.8; O2SAT 98–100; BMI 35.2
[2024-02-06] MEDS: Lactated Ringers 1,000 ML 999 ML IV (07:35)
[2024-02-06 07:51] LABS: Absolute Lymphocyte Count 2.59 X10^3/uL (0.83-4.51); Absolute Neutrophil Count 11.2 X10^3/uL (2.0-7.7); Basophil# 0.07 X10^3/uL; Basophil% 0.5 % (0-1); Eosinophil# 0.27 X10^3/uL; Eosinophils% 1.8 % (0-5); Hematocrit 35.8 % (37-47); Hemoglobin 11.9 g/dL (12.0-15.0); Lymphocyte # 2.59 X10^3/ul (0.83-4.51); Lymphocyte % 17.1 % (19-41); Mean Corp Hgb Conc 33.2 g/dL (32-36); Mean Corpuscular Hgb 29.6 pg (27.0-32.0); Mean Corpuscular Volume 89.1 fL (81-99); Mean Platelet Vol. 12.5 fl (6.2-12.0); Monocyte% 5.9 % (0-10); NRBC Flagged by Analyzer 0 % (0-5); Neutrophil # 11.16 X10^3/uL (2.7-7.7); Neutrophil % 73.4 % (47-70); Platelet Count 191 K/mm3 (150-450); RBC Distribution Width CV 13.5 % (11.6-14.6); RBC Distribution Width SD 44.2 fl (35.1-43.9); Red Blood Count 4.02 M/mm3 (4.2-5.4); White Blood Count 15.2 K/mm3 (4.4-11.0)
--- NOTE | 2024-02-06 08:02 | PCM.HP.OB ---
HPI - General General Date of Admission: 02/06/24 HPI Narrative ALLAN RANGEL, is a 33 F who presents for elective induction of labor at term. at 40w2 days for IOL Maternal Data Information LIZA Calculator Estimated Delivery Date Method Current WG Current Estimate 02/04/24 Manual 40w 2d Final LIZA: 02/04/24 PFSH PFSH Medical History (Updated 02/06/24 @ 15:45 by Natasha Turner CNM) Elective induction of labor planned Positive GBS test Post-dates Vaginal delivery Medical History no medical history Home Medications vit 122-ferrous fumarate 27 mg iron-folic acid 800 mcg tablet 1 ea PO DAILY vitamin 02/19/18 [History Last Taken 02/05/24] aspirin 81 mg capsule 81 mg PO DAILY Check with primary doctor 08/17/21 [History Last Taken 02/05/24] Allergy/AdvReac Type Severity Reaction Status Date / Time legumes Allergy Mild Itching Verified 02/06/24 08:19 nut - unspecified [nuts] Allergy Mild Itching Verified 02/06/24 08:19 shellfish derived Allergy Mild Itching Verified 02/06/24 08:19 pineapple Allergy NEEDS Verified 02/06/24 08:19 FOLLOW-UP sesame seed Allergy Food Verified 02/06/24 08:19 Allergy soy Allergy Food Verified 02/06/24 08:19 Allergy Family History no significant family his Surgical History no surgical history Social History (Updated 06/04/19 @ 15:37 by Sabrina Patel LOGISTICS CLERK, LOGISTICS CLERK-C) Smoking Status: Never smoker alcohol intake: current alcohol intake frequency: a few times a week History 3 Elective abortions Hx Para 3 Spontaneous abortions Hx # Term Pregnancies Ectopic pregnancies Hx # Pregnancies Multiple births # of living children NST FHR Rate Baby A Baseline: 160 Variability:: Moderate Accelerations:: 15 x 15 Decelerations:: None FHR Category:: Category II Uterine Activity:: None ROS Constitutional Constitutional: Reports systems reviewed and no addt'l complaints, except as documented; Denies headache(s) Eyes Eyes: Denies acute decrease in peripheral vision, blurry vision or change in vision ENT HEENT: Reports systems reviewed and no addt'l complaints, except as documented Cardiovascular Cardiovascular: Denies chest pain or dizziness Respiratory/Chest Respiratory/Chest: Denies cough, dyspnea, dyspnea on exertion, shortness of breath at rest or shortness of breath with exertion Gastrointestinal Gastrointestinal: Denies abdominal pain, diarrhea, nausea or vomiting Genitourinary Genitourinary: Denies abdominal discomfort Musculoskeletal Musculoskeletal: Denies limited range of motion Integumentary Integumentary: Reports systems reviewed and no addt'l complaints, except as documented Neurologic Neurologic: Reports systems reviewed and no addt'l complaints, except as documented Psychiatric Psychiatric: Reports systems reviewed and no addt'l complaints, except as documented Endocrine Endocrinology: Reports systems reviewed and no addt'l complaints, except as documented Hematologic/Lymphatic Hematologic/Lymphatic: Reports systems reviewed and no addt'l complaints, except as documented Allergic/Immunologic Allergic/Immunologic: Reports systems reviewed and no addt'l complaints, except as documented Vital Signs Vital Signs Vital Signs: 02/06/24 07:15 02/06/24 07:15 Pulse Rate 91 Blood Pressure 130/82 H BP Systolic 130 BP Diastolic 82 Weight Weight: 245 lb Body Mass Index (BMI) 35.2 Physical Exam Const alert and oriented x3 General Appearance: cooperative Orientation / Consciousness: awake, oriented to person, oriented to place and oriented to time Exam Limitations: no limitations HEENT normocephalic Head and Scalp: normal to inspection, normocephalic and atraumatic Face and Sinus: normal facial exam Eyes General Eye: normal appearance of both eyes Neck full ROM Chest Chest: symmetrical chest wall rise Resp normal respiratory effort and normal air movement Auscultation: clear to auscultation bilaterally Cardio regular rate, regular rhythm, S1 normal heart sound, S2 normal heart sound, no murmurs, no rub, no gallops and no clicks GI normal to inspection, nondistended, normoactive bowel sounds and non-tender appearance of the vagina normal Bladder / Kidney Exam: no CVA tenderness Manual OB Exam: presentation cephalic, dilated 5, effaced 70, station -1 and other Amniotic Fluid: clear amniotic fluid and other arom Back/Spine normal ROM Extremity normal to inspection and full ROM Skin no rashes or lesions noted Neuro oriented x3, CN's II-XII intact bilaterally and moves all extremities Sensorium / Orientation: awake, alert and oriented to person Motor Exam: clonus absent Deep Tendon Reflexes: Rt Patellar (L4): 2+ and Lt Patellar (L4): 2+ Labs Labs Labs: Blood Type O POSITIVE Antibody Screen NEGATIVE Hct 35.8 % (37-47) L Hgb 11.9 g/dL (12.0-15.0) L Syphilis Total Ab Non-reactive Rhogam given: No HIV negative RPR negative HepC negative HBsAG negative GBS negative GC/CT negative 1hr GCT negative Rubella immune Assessment & Plan (1) 40 weeks gestation of : (2) Obesity affecting : (3) History of delivery of macrosomal : PLAN: Plan 1) Admit to labor and delivery 2) AROM and pitocin per policy 3) EFM. Category 2FHT due to tachycardia, bolus and positional changes 4) ROutine labs 5) GBS negative 6) Planning unmedicated 7) [facility] physician, notified of patient status and of above assessment and plan
[2024-02-06] MEDS: Oxytocin 15 Units/NS 250ml 15 UNITS/250 ML IV.SOLN 2 UNITS IV (08:24)
[2024-02-06 08:25] LABS: Syphilis Antibodies Non-reactive
[2024-02-06] MEDS: Ondansetron 4 MG/2 ML Vial IV (10:31)
--- NOTE | 2024-02-06 11:26 | EX.PCM.OBRPT ---
Assessment & Plan (1) Vaginal delivery: (2) Lactating mother: (3) Macrosomic baby: COMMENT: 9lb 15oz Maternal Data Information LIZA Calculator Estimated Delivery Date Method Current WG Current Estimate 02/04/24 Manual 40w 2d Vaginal Delivery Maternal Presentation Maternal Presentation: Elective Induction Operative Information Date of Procedure: 02/06/24 Pre-Operative Diagnosis: Elective IOL Post-Operative Diagnosis: Surgery / Procedure Performed: Spontaneous Vaginal Delivery Type of Anesthesia: None Estimated Blood Loss: 350ml Time of Delivery: 11:15 Findings Description of Procedure: Progressed to complete with urge to push. Unmedicated, in hands and knees position. of viable male over intact perineum. APGARS 8,10 respectively. head delivered with body immediately forthcoming. CANx1, delivered through. Placed on maternal abdomen, strong cry. Mouth and nares suctioned for secretions. Pitocin started for active 3rd stage management. Cord doubly clamped and cut by FOB after pulsations ceased, delayed cord clamping. Placenta delivered intact via sandoval, 3 vessel cord intact. Perineum inspected and revealed intact. Fundus firm and hemostasis achieved. EBL 350ml. Mom and baby stable, planning to breastfeed. Family bonding well. notified of delivery. Presentation: Vertex and MICH Amniotic Membrane Rupture Type: Artificial Amniotic Fluid Description: Clear Placental Delivery Description: Spontaneous Placenta Disposition: [facility] Cord Vessel Description: 3 Vessels Cord Entanglement: Around neck x 1, loose Nuchal Cord Compression: Without compression A Gender: Male (1 minute): 8 (5 minute): 10 Delayed Cord Clamping: Yes Post Vaginal Delivery Medications Given After Delivery: IV Pitocin and IM Pitocin Episiotomy Description: None Laceration: None Complication Complications: None
[2024-02-07 04:23] VITALS: BP 128/84; PULSE 73; RESP 97; TEMP 36.4; O2SAT 16
[2024-02-07 08:15] VITALS: BP 116/77; PULSE 79; RESP 15; TEMP 36.6
--- NOTE | 2024-02-07 10:29 | PCM.PN.OB ---
Subjective Subjective Pain well controlled, average lochia. No new c/o today. Breastfeeing . Desires d/c home today Objective Data Objective Data Vital Signs: Vital Signs Temp Pulse Resp BP Pulse Ox O2 Del Method 97.8 F 79 15 116/77 16 Room Air 02/07/24 08:15 02/07/24 08:15 02/07/24 08:15 02/07/24 08:15 02/07/24 04:23 02/07/24 08:15 Oxygen Delivery Method Room Air Weight: 111.13 kg Body Mass Index (BMI) 35.2 Intake & Output: Intake and Output for Last 24 Hours 02/05/24 02/06/24 02/07/24 23:59 23:59 23:59 Intake Total 983.58 / 983.58 Output Total 350 / 350 Balance 633.58 / 633.58 Lab / Micro Data 02/06/24 07:35 Physical Exam Const alert and no apparent distress Narrative: Fundus firm, below umbilicus. Assessment & Plan (1) Vaginal delivery: PLAN: PPD#1 s/p . Routine care desires d/c home
--- NOTE | 2024-02-07 10:40 | PCM.DC.SUM ---
Providers Date of Admission: 02/06/24 Primary Care Physician: Enedina Primary Care Phys Reason For Visit: VAGINAL DELIVERY Diagnosis Discharge Diagnosis (1) Vaginal delivery: Status: Acute Code(s): O80 - Encounter for full-term uncomplicated delivery Plan: PPD#1 s/p . Routine care desires d/c home Medications at Discharge Home Medications vit 122-ferrous fumarate 27 mg iron-folic acid 800 mcg tablet 1 ea PO DAILY vitamin 02/19/18 Hospital Course Operations None Procedures None Summary of Care Provided Minutes Spent on Discharge: 17 Hospital Course: Patient admitted 02/05 for 40 week elective induction of labor. on 02/05 of macrosmic without complication. course unremarkable. D esires d/c home today with routine instructions and follow up. Weight / BMI Weight Weight: 111.13 kg Body Mass Index (BMI) 35.2 ABG / Lab / Microbiology Data 02/06/24 07:35 D/C Instructions Discharge Diet: No restrictions May resume sexual activity in: 6 weeks Call your doctor if your incision/area has: Continuous Slow Oozing, Sudden Increased Bleeding, Foul Smelling Discharge and Swelling at the incision site Call your doctor if you observe: Fever of 101 or Higher and Inability to urinate Please Follow Up With: Natasha Turner CNM When: Follow up with our office in 1-2 and 6 weeks or as needed. [phone] Meaningful Use Info Meaningful Use Meaningful Use Diagnoses (Choose all that apply): None applicable Ischemic Stroke Statin Dosing Therapy Reference: STATIN DOSE THERAPY REFERENCE: * Patients > 75 years receive moderate or high dose statin therapy. * Patients 75 years or YOUNGER should receive HIGH intensity statin dose unless contraindicated. You will be required to document reason for non-treatment if statin daily dose does not meet guidelines. HIGH DOSE STATIN THERAPY DAILY Atorvastatin > than or = to 40 mg Rosuvastatin > than or = to 20 mg Amlodipine + Atorvastatin > than or = to 2.5/40 mg Ezetimibe + Simvastatin 10/80 mg Simvastatin 80mg Discharge Plan Admission Admit Date/Time: 02/06/24 07:28 Primary Reason for Your Visit: Vaginal delivery Attending Provider: Joon Randle Primary Care Provider: Care Physician,Enedina Primary Instructions Patient Instructions: After a Vaginal Discharge Orders/Prescriptions Prescriptions: Continued [id number] acid 1 EACH tablet 1 ea PO DAILY Discontinued aspirin 81 mg Capsule 81 mg PO DAILY Referrals / Follow Up: Care Physician,No Primary [Primary Care Provider] - Disposition Disposition (needs filled in before D/C Order can be placed): Home, Self Care
[2024-02-07 13:03] VITALS: BP 131/93; PULSE 74; RESP 16; TEMP 36.6; O2SAT 97
== END 2024-02-07 13:35 | disposition home or self-care (01) | DRG 807 ==
PROVIDERS: Admitting Provider Obstetrics & Gynecology; Referring Provider Obstetrics & Gynecology; Visit Provider Obstetrics & Gynecology
DX: O48.0 Post-term pregnancy (principal); Z37.0 Single live birth; O36.63X0 Maternal care for excessive fetal growth, third trimester, not applicable or unspecified; O99.214 Obesity complicating childbirth; O69.81X0 Labor and delivery complicated by cord around neck, without compression, not applicable or unspecified; O76 Abnormality in fetal heart rate and rhythm complicating labor and delivery; Z3A.40 40 weeks gestation of pregnancy
CPT/HCPCS: 59025; 59050; 85025; 86780; 86850; 86900; 86901; 99221; J7120; G0378; J2405

== ENCOUNTER 2024-07-25 11:32 | Emergency (ER) | payer MEDICAID, SELFPAY ==
[2024-07-25 11:32] VITALS: BP 126/80; PULSE 77; RESP 14; TEMP 36.3; O2SAT 100; BMI 33.2
[2024-07-25 13:11] VITALS: BP 117/82; PULSE 72; RESP 14; O2SAT 100
--- NOTE | 2024-07-25 13:32 | ED.VIS.BACK ---
HPI History of Present Illness Chief Complaint: Back Informant: patient Narrative Narrative: 34-year-old female presenting to the emergency room chief complaint of neck and head injury. Patient states that yesterday she walked out of her house when rolled up piece of metal came off the roof and hit her in the back of the head/neck. No loss of consciousness. She does note a headache neck pain and some nausea since. She also notes pain in the low back. The patient actually has video of the injury. PFSH PFSH Medical History History of delivery of macrosomal infant Vaginal delivery Positive GBS test Elective induction of labor planned History of depression Post-dates Home Medications ?Medication ?Instructions ?Recorded ?Last Taken ?Type vit 122-ferrous fumarate 1 ea PO DAILY vitamin 02/19/18 02/05/24 History 27 mg iron-folic acid 800 mcg tablet ondansetron 4 mg disintegrating 4 mg PO Q6H PRN PRN Nausea #15 tabs 07/25/24 Unknown Rx tablet Allergy/AdvReac Type Severity Reaction Status Date / Time legumes Allergy Mild Itching Verified 07/25/24 11:32 nut - unspecified (nuts) Allergy Mild Itching Verified 07/25/24 11:32 shellfish derived Allergy Mild Itching Verified 07/25/24 11:32 pineapple Allergy NEEDS Verified 07/25/24 11:32 FOLLOW-UP sesame seed Allergy Food Verified 07/25/24 11:32 Allergy soy Allergy Food Verified 07/25/24 11:32 Allergy Social History Smoking Status: Never smoker alcohol intake: current alcohol intake frequency: a few times a week ROS ROS ED Constitutional Constitutional ED: Denies chills, fever(s) or weight loss Eyes Eyes: Denies change in vision or diplopia ENT ENT ED: Denies ear pain, rhinorrhea or sore throat Cardiovascular Cardiovascular: Denies chest pain, orthopnea, palpitations or racing heartbeat Respiratory/Chest Respiratory/Chest: Denies cough, dyspnea or orthopnea Gastrointestinal Gastrointestinal: Reports nausea; Denies abdominal pain, diarrhea or vomiting Genitourinary Genitourinary ED: Denies dysuria, hematuria or urinary frequency Musculoskeletal Musculoskeletal: Reports back pain and neck pain; Denies arthralgias or myalgias Integumentary Denies abscess or rash Neurologic Neurologic: Reports headache(s); Denies weakness Psychiatric Psychiatric: Denies anxiety, depression, suicidal ideation or suicidal thoughts Endocrine Endocrinology: Denies polydipsia, polyphagia or polyuria Allergic/Immunologic Allergic/Immunologic ED: Denies mouth swelling, tongue swelling or urticaria EXAM Physical Exam Const Vital Signs: 07/25/24 11:32 07/25/24 13:11 07/25/24 14:38 Temperature 97.3 F L 97.3 F L Temperature Source Temporal Pulse Rate 77 72 75 Respiratory Rate 14 14 16 Blood Pressure 126/80 H 117/82 H 124/66 H Blood Pressure Mean 95 93 85 Pulse Ox 100 100 98 Oxygen Delivery Method Room Air Room Air Positive well nourished and well developed General Appearance ED: well developed and NAD HEENT Reports normocephalic, head/scalp atraumatic and moist mucous membranes HEENT Narrative: Tender to palpation in around C2-C3 in the midline Eyes PERRL and EOMs intact bilaterally Neck no lymphadenopathy, supple and no JVD Resp normal respiratory effort and clear to auscultation bilaterally Cardio regular rate, regular rhythm and no murmurs GI normal to inspection, nondistended, normoactive bowel sounds and non-tender Palpation: soft Back/Spine no CVA tenderness and normal ROM Extremity normal to inspection General Extremety ED: Negative for edema General Extremity: Negative for edema Neuro oriented x3, CN's II-XII intact bilaterally and no sensory deficits noted Neuro Narrative: Patient is able to ambulate normally without any foot drop or weakness arms appear functionally intact both sensory and muscular Sensorium / Orientation: alert Motor Exam: strength 5/5 throughout Psych mental status grossly normal Mood & Affect: Negative for depressed or tearful Skin no rashes or lesions noted and no wounds MDM MDM MDM Narrative Medical decision making narrative: Differential diagnosis includes but not limited to concussion skull fracture cervical spine fracture lumbar spine fracture lumbar and cervical myofascial strain intracranial hemorrhage CT the brain showed no acute findings. CT of the cervical spine did not demonstrate any fracture but did have straightening of the normal curvature. CT of the lumbar spine demonstrated no acute fracture but straightening of the normal curvature. Clinically think the patient has a mild concussion and cervical and lumbar myofascial strain. The patient does not wish any pain or muscle relaxants that she is breast-feeding. I have can write for some Zofran for her nausea. Patient to follow-up return if worsening or concerns History & Record Review Discussion w/independent historian: Patient Radiography Diagnostic Testing: Clinical Impression(s) from Imaging Studies Brain CT 07/25/24 14:00 IMPRESSION: Normal unenhanced CT scan of the brain. Electronically Signed: Sushil Hawthorne MD at 14:19 EDT , Cervical Spine CT 07/25/24 14:00 IMPRESSION: Straightening of the normal cervical lordosis. Electronically Signed: Sushil Hawthorne MD at 14:16 EDT , Lumbar Spine CT 07/25/24 14:00 IMPRESSION: There is straightening of the normal lumbar lordosis. Electronically Signed: Sushil Hawthorne MD at 14:19 EDT , Discharge Plan Triage Chief Complaint: Back ED Provider: Trev Spencer Dx/Rx/DC Orders Clinical Impression: Concussion, Acute cervical myofascial strain, Acute lumbar myofascial strain Instructions: ED Concussion, ED Neck Sprain or Strain Prescriptions: New ondansetron 4 mg tablet,disintegrating 4 mg PO Q6H PRN PRN (Reason: Nausea) Qty: 15 0RF No Action [id number] 1 EACH tablet 1 ea PO DAILY Primary Care Provider: Care Physician,No Primary Referrals: Care Physician,No Primary [Primary Care Provider] - Activity Restrictions/Additional Instructions: Follow-up with primary care as needed and if not improving return if worsening. As discussed Tylenol and/or Motrin for pain. Heat, you may try electrical stim if you have access to this. Zofran as needed for nausea Print Language: Turkmen Disposition Disposition: Home, Self Care Discharge Date/Time: 07/25/24 14:39
--- NOTE | 2024-07-25 14:00 | CT_ITS ---
STUDY: CT BRAIN WITHOUT CONTRAST REASON FOR EXAM: Female, 34 years old. Injury RADIATION DOSAGE (If Supplied By Facility): CTDIvol = ( 44.99 ) mGy, DLP = ( 812.98 ) mGycm TECHNIQUE: Transaxial CT imaging of the brain was performed without administration of intravenous contrast material. Individualized dose optimization techniques were used for this CT. COMPARISON: No relevant priors. FINDINGS: Normal soft tissue structures. Normal calvarium. Normal size ventricles and extra-axial spaces for the patient''s age. Normal white matter tracts of the cerebral hemispheres. Normal basal ganglia and thalami. Normal brainstem. Normal cerebellum. There is no intracranial hemorrhage. There are no findings of an acute ischemic infarction. There is a 9.2 mm polyp or retention cyst along the medial wall of the right maxillary sinus. CT/Brain/Head without Contrast IMPRESSION: Normal unenhanced CT scan of the brain. Electronically Signed: Sushil Hawthorne MD at 14:19 EDT ,
--- NOTE | 2024-07-25 14:00 | CT_ITS ---
STUDY: CT LUMBAR SPINE WITHOUT CONTRAST REASON FOR EXAM: Female, 34 years old. Injury RADIATION DOSAGE (If Supplied By Facility): CTDIvol = ( 39.83 ) mGy, DLP = ( 1246.90 ) mGycm TECHNIQUE: The patient was scanned in a multi detector CT scanner. High resolution transaxial imaging was performed. Images were obtained from L1 to S1 vertebral level. Sagittal and coronal images were reconstructed. Individualized dose optimization techniques were used for this CT. COMPARISON: None FINDINGS: There is straightening of the normal lumbar lordosis. There is no substantial scoliosis. Normal vertebrae of the lumbar spine. L1-2: Normal endplates. Normal disc height and morphology. Normal bilateral facet joints. Normal central canal and bilateral lateral recesses. Normal bilateral intervertebral neural foramina. L2-3: Normal endplates. Normal disc height and morphology. Normal bilateral facet joints. Normal central canal and bilateral lateral recesses. Normal bilateral intervertebral neural foramina. L3-4: Normal endplates. Normal disc height and morphology. Normal bilateral facet joints. Normal central canal and bilateral lateral recesses. Normal bilateral intervertebral neural foramina. L4-5: Normal endplates. Normal disc height and morphology. Normal bilateral facet joints. Normal central canal and bilateral lateral recesses. Normal bilateral intervertebral neural foramina. L5-S1: Normal endplates. Normal disc height and morphology. Normal bilateral facet joints. Normal central canal and bilateral lateral recesses. Normal bilateral intervertebral neural foramina. Normal visualized paraspinous soft tissue structures. CT/Spine Lumbar without Contrast IMPRESSION: There is straightening of the normal lumbar lordosis. Electronically Signed: Sushil Hawthorne MD at 14:19 EDT ,
--- NOTE | 2024-07-25 14:00 | CT_ITS ---
STUDY: CT CERVICAL SPINE WITHOUT CONTRAST REASON FOR EXAM: Female, 34 years old. Injury RADIATION DOSAGE (If Supplied By Facility): CTDIvol = ( 24.75 ) mGy, DLP = ( 499.10 ) mGycm TECHNIQUE: High resolution transaxial imaging was performed without contrast material. Sagittal and coronal images were reconstructed. Individualized dose optimization techniques were used for this CT. COMPARISON: None FINDINGS: Normal craniovertebral junction. Normal anterior atlantoaxial articulation. Normal odontoid process. There is straightening of the normal cervical lordosis. Normal vertebral bodies and posterior osseous elements. C2-3: Normal endplates. Normal disc height and morphology. Normal central canal and intervertebral neuroforamina. C3-4: Normal endplates. Normal disc height and morphology. Normal central canal and intervertebral neuroforamina. C4-5: Normal endplates. Normal disc height and morphology. Normal central canal and intervertebral neuroforamina. C5-6: Normal endplates. Normal disc height and morphology. Normal central canal and intervertebral neuroforamina. C6-7: Normal endplates. Normal disc height and morphology. Normal central canal and intervertebral neuroforamina. C7-T1: Normal endplates. Normal disc height and morphology. Normal central canal and intervertebral neuroforamina. Normal visualized soft tissue structures. CT/Spine Cervical without Contras IMPRESSION: Straightening of the normal cervical lordosis. Electronically Signed: Sushil Hawthorne MD at 14:16 EDT ,
[2024-07-25 14:38] VITALS: BP 124/66; PULSE 75; RESP 16; TEMP 36.3; O2SAT 98
== END 2024-07-25 14:39 | disposition home or self-care (01) ==
PROVIDERS: Emergency Provider Emergency Medicine; Visit Provider Emergency Medicine
DX: S06.0X0A Concussion without loss of consciousness, initial encounter (principal); S39.012A Strain of muscle, fascia and tendon of lower back, initial encounter; S16.1XXA Strain of muscle, fascia and tendon at neck level, initial encounter; R51.9 Headache, unspecified; W20.8XXA Other cause of strike by thrown, projected or falling object, initial encounter
CPT/HCPCS: 70450; 72125; 72131; 99282